=== PATIENT | female | born 1935 | race Two or more races ===

== ENCOUNTER 2021-02-08 19:12 | Inpatient (IN) | payer OTHER ==
[~2021-02-08] VITALS: Ht 160 cm; Wt 76.1 kg
[2021-02-08] MEDS ORDERED: ONDANSETRON HCL 4 MG/2 ML VIAL IV ONE (19:30)
[2021-02-08] MEDS ORDERED: MORPHINE SULFATE 4 MG/ML SYR/VIAL IV ONE (19:30)
[2021-02-08 19:35] LABS: Basophils # (auto) 0.1 10 ^3/uL (0-0.2); Basophils % (auto) 0.8 % (0.0-2.0); Eosinophils # (auto) 0.1 10 ^3/uL (0-0.8); Eosinophils % (auto) 2.1 % (0.0-7.0); Hematocrit 40.9 % (36.0-46.0); Hemoglobin 13.4 g/dL (12.2-16.2); Lymphocytes # (auto) 1.3 10 ^3/uL (0.4-5.4); Lymphocytes % (auto) 19.5 % (10.0-50.0); Mean Corpuscular Hemoglobin 32.8 pg (28.0-32.0); Mean Corpuscular Hgb Conc. 32.8 g/dL (32.0-36.0); Monocytes # (auto) 0.5 10 ^3/uL (0-1.3); Neutrophils # (auto) 4.7 10 ^3/uL (1.6-8.6); Neutrophils % (auto) 69.6 % (37.0-80.0); Red Blood Cells 4.09 10^6/uL (4.0-5.20); Red Cell Distribution Width 16.3 % (11.8-14.3); White Blood Cell 6.8 10^3/uL (4.4-10.8)
[2021-02-08 20:46] LABS: Albumin 3.3 g/dL (3.4-5.0); Calcium 8.9 mg/dL (8.5-10.1); Potassium 3.5 mmol/L (3.5-5.1)
[2021-02-08 20:49] LABS: Bilirubin, Total 0.3 mg/dL (0.2-1.0); Total Protein 6.8 g/dL (6.4-8.2)
[2021-02-08 20:50] LABS: BUN/Creatinine Ratio 10.6
[2021-02-09] MEDS ORDERED: fentaNYL CITRATE 100 MCG/2 ML VL IV ONE (00:45)
[2021-02-09] MEDS ORDERED: cloNIDine HCL 0.1 MG TAB PO PRN (00:45)
[2021-02-09] MEDS ORDERED: ONDANSETRON HCL 4 MG/2 ML VIAL IV PRN (00:45)
[2021-02-09] MEDS ORDERED: ACETAMINOPHEN 325 MG TAB PO PRN (00:45)
[2021-02-09 02:10] LABS: INR 0.95 (0.9-1.15); Partial Thromboplastin Time 26.5 sec (23.6-33.0)
[2021-02-09] MEDS: MORPHINE SULFATE 4 MG/ML SYR/VIAL IV PRN ×6 (02:58→23:15)
[2021-02-09] MEDS: amLODIPine BESYLATE 5 MG TAB PO SCH (09:20)
[2021-02-09] MEDS ORDERED: PANTOPRAZOLE 40 MG TAB PO SCH (10:00)
[2021-02-09] MEDS ORDERED: LISI40TA11 PO (10:06)
[2021-02-09] MEDS ORDERED: FLUO20CA90 PO (10:06)
[2021-02-09] MEDS ORDERED: TRAZ50TA2 PO (10:06)
[2021-02-09] MEDS ORDERED: AMLO-496 PO (10:06)
[2021-02-09 11:00] VITALS: BP 165/83
[2021-02-09] MEDS ORDERED: ENOXAPARIN SOD 40 MG/0.4 ML SYRINGE SC ONE (12:00)
[2021-02-09 17:00] VITALS: BP 164/71
[2021-02-09] MEDS: METOPROLOL TARTRATE 25 MG TAB PO SCH ×3 (17:17→23:05)
[2021-02-09 20:00] VITALS: BP 150/68
[2021-02-09] MEDS: HYDROcodone-ACET 5/325MG TAB PO PRN (20:18)
[2021-02-09 22:00] VITALS: BP 150/68
[2021-02-10] VITALS (10 sets, daily range): BP systolic 98–148; BP diastolic 55–84
[2021-02-10] MEDS: MORPHINE SULFATE 4 MG/ML SYR/VIAL IV PRN (03:24)
[2021-02-10 06:40] LABS: Basophils # (auto) 0 10 ^3/uL (0-0.2); Basophils % (auto) 0.4 % (0.0-2.0); Eosinophils # (auto) 0 10 ^3/uL (0-0.8); Lymphocytes # (auto) 0.7 10 ^3/uL (0.4-5.4)
[2021-02-10 06:42] LABS: Eosinophils % (auto) 0.4 % (0.0-7.0); Hematocrit 37.9 % (36.0-46.0); Hemoglobin 12.9 g/dL (12.2-16.2); Lymphocytes % (auto) 8.6 % (10.0-50.0); Mean Corpuscular Hemoglobin 33.8 pg (28.0-32.0); Mean Corpuscular Volume 99.4 fL (80.0-100.0); Monocytes # (auto) 0.9 10 ^3/uL (0-1.3); Monocytes % (auto) 11.4 % (0.0-12.0); Neutrophils # (auto) 6.4 10 ^3/uL (1.6-8.6); Neutrophils % (auto) 79.2 % (37.0-80.0); Red Blood Cells 3.82 10^6/uL (4.0-5.20)
[2021-02-10 06:52] LABS: BUN/Creatinine Ratio 15.8; Calcium 8.6 mg/dL (8.5-10.1); Potassium 3.7 mmol/L (3.5-5.1)
[2021-02-10] MEDS: METOPROLOL TARTRATE 25 MG TAB PO SCH ×2 (10:00→21:33)
[2021-02-10] MEDS: ENOXAPARIN SOD 40 MG/0.4 ML SYRINGE SC SCH (11:22)
[2021-02-10] MEDS ORDERED: BUPIVACAINE 0.5% P/F INJ 10 ML VIAL ONE (14:36)
[2021-02-10] MEDS ORDERED: fentaNYL CITRATE 100 MCG/2 ML VL ONE (14:42)
[2021-02-10] MEDS ORDERED: KETAMINE HCL 10 ML ONE (14:42)
[2021-02-10] MEDS ORDERED: MIDAZOLAM HCL 2MG/2ML 2ml VIAL (1mg/ml) ONE ×2 (14:42→14:43)
[2021-02-10] MEDS ORDERED: PROPOFOL 10 MG/ML 20 ML IV ONE (14:43)
[2021-02-10] MEDS ORDERED: ONDANSETRON HCL 4 MG/2 ML VIAL ONE (14:43)
[2021-02-10] MEDS ORDERED: MORPHINE SULF PF 2 MG/2 ML SYRG ONE (14:49)
[2021-02-10] MEDS ORDERED: HYDROmorphone HCL 2 MG/ML VL IV PRN (15:00)
[2021-02-10] MEDS ORDERED: MORPHINE SULFATE 4 MG/ML SYR/VIAL IV PRN (15:00)
[2021-02-10] MEDS ORDERED: ONDANSETRON HCL 4 MG/2 ML VIAL IV PRN (15:00)
[2021-02-10] MEDS ORDERED: ceFAZolin 1GM/50ML 100 ML IV ONE (15:01)
[2021-02-10] MEDS ORDERED: NALOXONE HCL 0.4 MG/ML VIAL IV PRN (16:30)
[2021-02-10] MEDS ORDERED: diphenhdrAMINE HCL 50 MG/1 ML VL IV PRN (16:30)
[2021-02-10] MEDS ORDERED: ACETAMINOPHEN 325 MG TAB PO PRN (17:15)
[2021-02-10] MEDS: amLODIPine BESYLATE 5 MG TAB PO SCH (17:22)
[2021-02-10] MEDS: LACTATED RINGER'S 1,000 ML IV SCH (18:33)
[2021-02-10] MEDS: ceFAZolin 1GM/50ML 50 ML IV SCH (18:33)
[2021-02-10] MEDS: SODIUM CHLOR 0.9% PF (SALINE LOCK) 10ML VIAL/SYR IV SCH (21:33)
[2021-02-11] VITALS (21 sets, daily range): BP systolic 97–147; BP diastolic 47–75
[2021-02-11] MEDS: LACTATED RINGER'S 1,000 ML IV SCH ×3 (01:06→22:39)
[2021-02-11] MEDS: ceFAZolin 1GM/50ML 50 ML IV SCH (01:06)
[2021-02-11] MEDS: HYDROcodone-ACET 10/325MG TAB PO PRN ×3 (03:00→19:40)
[2021-02-11] MEDS: SODIUM CHLOR 0.9% PF (SALINE LOCK) 10ML VIAL/SYR IV SCH ×3 (05:36→20:56)
[2021-02-11 06:51] LABS: Basophils # (auto) 0 10 ^3/uL (0-0.2); Basophils % (auto) 0.4 % (0.0-2.0); Eosinophils # (auto) 0 10 ^3/uL (0-0.8); Eosinophils % (auto) 0.5 % (0.0-7.0); Hematocrit 33.2 % (36.0-46.0); Hemoglobin 10.7 g/dL (12.2-16.2); Lymphocytes # (auto) 0.6 10 ^3/uL (0.4-5.4); Lymphocytes % (auto) 8.4 % (10.0-50.0); Mean Corpuscular Hemoglobin 32.5 pg (28.0-32.0); Mean Corpuscular Hgb Conc. 32.2 g/dL (32.0-36.0); Mean Corpuscular Volume 100.9 fL (80.0-100.0); Monocytes # (auto) 0.8 10 ^3/uL (0-1.3); Monocytes % (auto) 11.9 % (0.0-12.0); Neutrophils # (auto) 5.4 10 ^3/uL (1.6-8.6); Neutrophils % (auto) 78.8 % (37.0-80.0); Nucleated Red Blood Cells % 0.1 %; Red Blood Cells 3.29 10^6/uL (4.0-5.20); Red Cell Distribution Width 16.3 % (11.8-14.3); White Blood Cell 6.8 10^3/uL (4.4-10.8)
[2021-02-11 06:52] LABS: BUN/Creatinine Ratio 14.8; Potassium 3.8 mmol/L (3.5-5.1)
[2021-02-11] MEDS: MORPHINE SULFATE 4 MG/ML SYR/VIAL IV PRN ×3 (09:42→22:41)
[2021-02-11] MEDS: METOPROLOL TARTRATE 25 MG TAB PO SCH ×2 (10:00→20:56)
[2021-02-11] MEDS: ENOXAPARIN SOD 40 MG/0.4 ML SYRINGE SC SCH (11:14)
[2021-02-12] MEDS: HYDROcodone-ACET 10/325MG TAB PO PRN ×4 (00:37→23:18)
[2021-02-12] MEDS: LACTATED RINGER'S 1,000 ML IV SCH ×2 (04:30→14:49)
[2021-02-12 05:00] VITALS: BP 112/65
[2021-02-12] MEDS: SODIUM CHLOR 0.9% PF (SALINE LOCK) 10ML VIAL/SYR IV SCH ×3 (05:05→21:51)
[2021-02-12 08:25] LABS: Basophils # (auto) 0 10 ^3/uL (0-0.2); Basophils % (auto) 0.4 % (0.0-2.0); Eosinophils # (auto) 0.1 10 ^3/uL (0-0.8); Eosinophils % (auto) 1.5 % (0.0-7.0); Hematocrit 31.6 % (36.0-46.0); Hemoglobin 10.5 g/dL (12.2-16.2); Lymphocytes # (auto) 0.7 10 ^3/uL (0.4-5.4); Lymphocytes % (auto) 8.7 % (10.0-50.0); Mean Corpuscular Hemoglobin 33.3 pg (28.0-32.0); Mean Corpuscular Hgb Conc. 33.3 g/dL (32.0-36.0); Mean Corpuscular Volume 100.2 fL (80.0-100.0); Monocytes # (auto) 0.7 10 ^3/uL (0-1.3); Monocytes % (auto) 9.2 % (0.0-12.0); Neutrophils % (auto) 80.2 % (37.0-80.0); Nucleated Red Blood Cells % 0.1 %; Red Blood Cells 3.16 10^6/uL (4.0-5.20); Red Cell Distribution Width 16.2 % (11.8-14.3); White Blood Cell 7.5 10^3/uL (4.4-10.8)
[2021-02-12 08:59] LABS: BUN/Creatinine Ratio 21.3; Calcium 8.7 mg/dL (8.5-10.1); Potassium 3.8 mmol/L (3.5-5.1)
[2021-02-12 09:00] VITALS: BP 140/73
[2021-02-12] MEDS: ENOXAPARIN SOD 40 MG/0.4 ML SYRINGE SC SCH (10:26)
[2021-02-12] MEDS: METOPROLOL TARTRATE 25 MG TAB PO SCH ×2 (10:27→21:52)
[2021-02-12] MEDS: MORPHINE SULFATE 4 MG/ML SYR/VIAL IV PRN (10:32)
[2021-02-12 13:00] VITALS: BP 142/74
[2021-02-12 17:00] VITALS: BP 153/68
[2021-02-12 22:00] VITALS: BP 135/61
[2021-02-13] MEDS: LACTATED RINGER'S 1,000 ML IV SCH ×2 (00:47→16:18)
[2021-02-13 05:00] VITALS: BP 150/76
[2021-02-13] MEDS: SODIUM CHLOR 0.9% PF (SALINE LOCK) 10ML VIAL/SYR IV SCH ×3 (05:18→22:22)
[2021-02-13] MEDS: HYDROcodone-ACET 10/325MG TAB PO PRN (05:19)
[2021-02-13 09:18] VITALS: BP 144/78
[2021-02-13] MEDS: METOPROLOL TARTRATE 25 MG TAB PO SCH ×2 (09:31→22:22)
[2021-02-13] MEDS: ENOXAPARIN SOD 40 MG/0.4 ML SYRINGE SC SCH (09:31)
[2021-02-13] MEDS: MORPHINE SULFATE 4 MG/ML SYR/VIAL IV PRN ×4 (11:43→20:45)
[2021-02-13 13:14] VITALS: BP 145/69
[2021-02-13 17:00] VITALS: BP 157/81
[2021-02-13] MEDS ORDERED: FUROSEMIDE 40 MG/4 ML VIAL IV ONE (17:30)
[2021-02-13] MEDS ORDERED: POTASSIUM EFFERVESENT TAB 25 MEQ PO ONE (17:30)
[2021-02-13 22:00] VITALS: BP 145/75
[2021-02-14 05:00] VITALS: BP 136/71
[2021-02-14] MEDS: SODIUM CHLOR 0.9% PF (SALINE LOCK) 10ML VIAL/SYR IV SCH ×3 (06:00→21:59)
[2021-02-14] MEDS: MORPHINE SULFATE 4 MG/ML SYR/VIAL IV PRN ×3 (06:01→19:47)
[2021-02-14 09:00] VITALS: BP 155/84
[2021-02-14] MEDS: HYDROcodone-ACET 10/325MG TAB PO PRN (09:19)
[2021-02-14] MEDS: ENOXAPARIN SOD 40 MG/0.4 ML SYRINGE SC SCH (09:20)
[2021-02-14] MEDS: METOPROLOL TARTRATE 25 MG TAB PO SCH ×2 (09:20→22:00)
[2021-02-14 17:00] VITALS: BP 134/63
[2021-02-14] MEDS: HYDROcodone-ACET 5/325MG TAB PO PRN (21:59)
[2021-02-14 22:00] VITALS: BP 149/75
[2021-02-15] MEDS: MORPHINE SULFATE 4 MG/ML SYR/VIAL IV PRN (05:21)
[2021-02-15] MEDS: SODIUM CHLOR 0.9% PF (SALINE LOCK) 10ML VIAL/SYR IV SCH (07:08)
[2021-02-15 09:00] VITALS: BP 139/67
[2021-02-15] MEDS: HYDROcodone-ACET 10/325MG TAB PO PRN ×2 (09:22→20:10)
[2021-02-15] MEDS: METOPROLOL TARTRATE 25 MG TAB PO SCH (10:05)
[2021-02-15] MEDS: ENOXAPARIN SOD 40 MG/0.4 ML SYRINGE SC SCH (10:06)
[2021-02-15 13:00] VITALS: BP 120/58
[2021-02-15 16:51] VITALS: BP 127/74
== END 2021-02-15 21:35 | DRG 481 ==
LOC: EDBD 19:12 → ER 19:15 → OVERFLOW 02-09 00:43 → CENTRAL 02-09 09:03 → TELE-CENTR 02-12 08:38
PROVIDERS: ADMIT Nurse Practitioner; ATTEND Internal Medicine
PROC: BQ13ZZZ Fluoroscopy of Right Femur (ICD-10-PCS; 2021-02-10)
PROC: 0QS636Z Reposition Right Upper Femur with Intramedullary Internal Fixation Device, Percutaneous Approach (ICD-10-PCS; principal; 2021-02-10 15:15)
DX: S72.141A Displaced intertrochanteric fracture of right femur, initial encounter for closed fracture (principal); D62 Acute posthemorrhagic anemia; I10 Essential (primary) hypertension; Z20.822 Contact with and (suspected) exposure to COVID-19; W18.39XA Other fall on same level, initial encounter; Y93.89 Activity, other specified; Y92.89 Other specified places as the place of occurrence of the external cause; Y99.8 Other external cause status; Z91.81 History of falling; I35.0 Nonrheumatic aortic (valve) stenosis
CPT/HCPCS: 36415; 70450; 71045; 72125; 73501; 73502; 76001; 80048; 80053; 85025; 85610; 85730; 87426; 93005; 93306; 96374; 96375; 97110; 97163; 97530; A4565; C1713; G0378; J0690; J2250; J2405; J2704; J3490